=== PATIENT | female | born 1985 | race Caucasian/White ===

== ENCOUNTER 2021-02-25 10:40 | Emergency (ER) | payer OTHER ==
[~2021-02-25] VITALS: Ht 154.9 cm; Wt 108.9 kg
[~2021-02-25 10:40] MED LIST: ANTIVERT25 MG PO; APAP500 PO; CIPROFLOXACIN500 M1 PO; IBUPROFEN 200200 M1 PO; IBUPROFEN 600600 M1 PO; NOHOMEMEDICATIONS; NORCO 5-325 TA1 EACH PO; PENICILLIN V P500 MG PO; PENICILLIN VK250 MG PO; PERCOCET 5-3251 EACH PO; PREDNISONE 20 M20 M1 PO; PROMETHAZINE-C120 ML PO; PROVENTIL HFA6.7 G1 INH; TUSSIONEX PENN473 ML PO; ZOFRAN ODT4 MG PO; ZPAK PO
[2021-02-25 11:43] LABS: ABSOLUTE NEUTROPHILS 4.1 thou/uL (1.4-8.2); BASOPHILS 0.5 % (0.0-2.0); EOSINOPHILS 0.7 % (0.0-3.0); HEMATOCRIT 37.9 % (37.0-47.0); HEMOGLOBIN 12.1 gm/dL (12.0-15.0); LYMPHOCYTES 25.2 % (24.0-44.0); MCH 23.7 pg (26.0-34.0); MCHC 31.8 g/dL (28.0-37.0); MCV 74.6 fL (80.0-100.0); MONOCYTES 6.9 % (1.0-8.0); PLATELET COUNT 192 thou/uL (150-400); POLYS 66.7 % (36.0-66.0); RBC 5.08 mil/uL (4.20-5.00); RDW 22.4 % (10.5-14.5); WBC 6.1 thou/uL (4.0-11.0)
[2021-02-25 11:46] LABS: CALCIUM 8.7 mg/dL (8.5-10.1); CREATININE 0.8 mg/dL (0.6-1.0); POTASSIUM 3.9 mmol/L (3.5-5.1)
[2021-02-25 11:52] LABS: ALBUMIN 3.6 g/dL (3.4-5.0); TOTAL BILIRUBIN 0.3 mg/dL (0.2-1.0); TOTAL PROTEIN 7.2 g/dL (6.4-8.2)
[2021-02-25] MEDS ORDERED: BUTALB-APAP-CA1 EACH PO (13:18)
[2021-02-25 14:49] VITALS: BP 153/96
== END 2021-02-25 14:50 | disposition home or self-care (01) ==
LOC: ER 10:40
PROVIDERS: Physician Assistant
DX: R51.9 Headache, unspecified (principal); I10 Essential (primary) hypertension; F17.210 Nicotine dependence, cigarettes, uncomplicated; Z88.6 Allergy status to analgesic agent; Z88.2 Allergy status to sulfonamides; Z88.8 Allergy status to other drugs, medicaments and biological substances